=== PATIENT | male | born 1950 | race Caucasian/White ===

== ENCOUNTER 2020-06-21 15:24 | Outpatient (CLI) | payer MEDICARE, SELFPAY ==
--- NOTE | 2020-06-21 15:27 | ECG_ITS ---
Measurements Intervals [place] Rate: 62 P: 51 MT: 172 QRS: 28 QRSD: 97 T: 13 QT: 377 QTc: 383 Interpretive Statements SINUS RHYTHM BASELINE ARTIFACT- II, III, AVF NORMAL ECG Electronically Signed On 06-21-2020 17:21:32 CDT by Indio Ahumada D.O.
== END 2020-06-21 15:25 | disposition home or self-care (01) ==
LOC: CHSLAB 15:27
PROVIDERS: PCP Family Medicine; Visit Provider Family Medicine
DX: Z01.818 Encounter for other preprocedural examination (principal)
CPT/HCPCS: 93005

== ENCOUNTER 2021-03-15 09:35 | Outpatient (CLI) | payer MEDICARE, SELFPAY ==
--- NOTE | 2021-03-15 09:37 | ECG_ITS ---
Measurements Intervals [place] Rate: 61 P: 43 KS: 170 QRS: 31 QRSD: 95 T: 15 QT: 376 QTc: 381 Interpretive Statements SINUS RHYTHM WITH MARKED SINUS ARRHYTHMIA BORDERLINE ECG Electronically Signed On 03-15-2021 12:11:50 CDT by Indio Ahumada D.O.
== END 2021-03-15 09:36 | disposition home or self-care (01) ==
LOC: CHSLAB 09:37 → CHSCARD 09:38
PROVIDERS: PCP Family Medicine; Visit Provider Family Medicine
DX: I10 Essential (primary) hypertension (principal)
CPT/HCPCS: 93005

== ENCOUNTER 2021-06-30 06:55 | Outpatient (CLI) | payer MEDICARE, SELFPAY ==
[2021-06-30 07:10] LABS: Hematocrit 40.8 % (37.0-46.0); Hemoglobin 13.7 g/dL (12.4-15.3); Mean Corpuscular HGB Conc 33.6 g/dL (32.0-36.0); Mean Corpuscular Hemoglobin 32.4 pg (27.0-31.0); Mean Corpuscular Volume 96.5 fL (78.0-102.0); Mean Platelet Volume 8.2 fl (8.7-11.0); Platelet Count Result 226 K/mm3 (150-420); Red Blood Count 4.23 M/mm3 (4.70-6.10); Red Cell Distribution Width 13.2 % (11.6-14.4); White Blood Count 6.7 K/mm3 (4.8-10.8)
[2021-06-30 07:51] LABS: Alanine Aminotransferase 43 U/L (16-63); Albumin Level 3.9 g/dL (3.4-5.0); Alkaline Phosphatase 92 U/L (46-116); Anion Gap 7 mmol/L (8-16); Aspartate Amino Transferase 24 U/L (15-37); Bilirubin,Total 0.5 mg/dL (0.00-1.00); Blood Urea Nitrogen 11 mg/dL (7-18); Calcium 8.6 mg/dL (8.5-10.1); Carbon Dioxide 30 mmol/L (21-32); Chloride 98 mmol/L (98-108); Cholesterol 120 mg/dL (0-200); Estimated Glomerular Filt Rate > 60; Glucose 107 mg/dL (70-99); HDL Direct 51 mg/dL (40-60); LDL Cholesterol Calculated 44 mg/dL (<130); Osmolality Calculated 279 mOsm/kg (285-295); Potassium 4.6 mmol/L (3.5-5.1); Sodium 135 mmol/L (136-145); Total Protein 6.9 g/dL (6.4-8.2); Triglycerides 126 mg/dL (0-150)
== END 2021-06-30 06:56 | disposition home or self-care (01) ==
LOC: CHSLAB 06:57
PROVIDERS: PCP Family Medicine; Visit Provider Nurse Practitioner Family
DX: I10 Essential (primary) hypertension (principal); E78.5 Hyperlipidemia, unspecified
CPT/HCPCS: 36415; 80053; 80061; 85027

== ENCOUNTER 2022-03-23 10:50 | Outpatient (NON) | payer MEDICARE, SELFPAY | END 2022-03-23 10:51 | disposition home or self-care (01) | LOC: CHSLAB 10:52 | PROVIDERS: PCP Family Medicine; Visit Provider Family Medicine | DX: L85.8 Other specified epidermal thickening (principal) | CPT/HCPCS: 88305 ==

== ENCOUNTER 2022-10-23 08:04 | Outpatient (CLI) | payer MEDICARE, SELFPAY ==
[2022-10-23 08:20] LABS: Hematocrit 40.1 % (37.0-46.0); Hemoglobin 13.4 g/dL (12.4-15.3); Mean Corpuscular HGB Conc 33.4 g/dL (32.0-36.0); Mean Corpuscular Hemoglobin 32.2 pg (27.0-31.0); Mean Corpuscular Volume 96.4 fL (78.0-102.0); Mean Platelet Volume 8.3 fl (8.7-11.0); Platelet Count Result 252 K/mm3 (150-420); Red Blood Count 4.16 M/mm3 (4.70-6.10); Red Cell Distribution Width 12.6 % (11.6-14.4); White Blood Count 7.1 K/mm3 (4.8-10.8)
[2022-10-23 08:58] LABS: Alanine Aminotransferase 31 U/L (16-63); Albumin Level 3.7 g/dL (3.4-5.0); Alkaline Phosphatase 81 U/L (46-116); Anion Gap 7 mmol/L (8-16); Aspartate Amino Transferase 17 U/L (15-37); Bilirubin,Total 0.6 mg/dL (0.00-1.00); Blood Urea Nitrogen 12 mg/dL (7-18); Calcium 8.6 mg/dL (8.5-10.1); Carbon Dioxide 29 mmol/L (21-32); Chloride 97 mmol/L (98-108); Cholesterol 117 mg/dL (0-200); Estimated Glomerular Filt Rate > 60; Glucose 110 mg/dL (70-99); HDL Direct 47 mg/dL (40-60); LDL Cholesterol Calculated 49 mg/dL (<130); Osmolality Calculated 276 mOsm/kg (285-295); Potassium 4.4 mmol/L (3.5-5.1); Sodium 133 mmol/L (136-145); Total Protein 6.8 g/dL (6.4-8.2); Triglycerides 105 mg/dL (0-150)
== END 2022-10-23 08:05 | disposition home or self-care (01) ==
LOC: CHSLAB 08:08
PROVIDERS: PCP Family Medicine; Visit Provider Family Medicine
DX: I10 Essential (primary) hypertension (principal); E78.5 Hyperlipidemia, unspecified
CPT/HCPCS: 36415; 80053; 80061; 85027

== ENCOUNTER 2023-06-08 08:27 | Outpatient (CLI) | payer MEDICARE, SELFPAY ==
--- NOTE | ~2023-06-08 | US_ITS ---
EXAMINATION: US aorta [facility] scrn DATE: 06/08/2023 08:43 INDICATION: Abdominal aortic aneurysm screening TECHNIQUE: Grayscale, color Doppler, and pulsed Doppler images of the aorta and common iliac arteries were obtained. COMPARISON: None. FINDINGS: The proximal aorta measures 2.1 cm. The mid aorta measures 2.2 cm. The distal aorta measures 2.1 cm. The right common iliac artery measures 1.4 cm. The left common iliac artery measures 1.3 cm. IMPRESSION: 1. Normal caliber abdominal aorta. Reviewed, dictated and finalized at location A.
== END 2023-06-08 08:28 | disposition home or self-care (01) ==
LOC: CHSIMG 08:29
PROVIDERS: PCP Family Medicine; Visit Provider Nurse Practitioner Family
DX: Z13.6 Encounter for screening for cardiovascular disorders (principal)
CPT/HCPCS: 76706

== ENCOUNTER 2025-07-08 09:01 | Outpatient (CLI) | payer MEDICARE, SELFPAY ==
--- OUTSIDE RECORDS SUMMARY | 2025-03-05 10:30 | XMS_ITS ---
Author Organization [facility] Address [address] [place], [place] [id number] Care Team Providers Care Shoe Shiner Name Role Phone ZECHARIAH HENDRICKS Unavailable [phone] Elver Kapoor Unavailable Unavailable NAZ PATRICIA Unavailable [phone] Allergies Allergen (clinical drug ingredient) Drug/Non Drug Allergy documented on EMR Reaction Allergy Type Onset Date Status Penicillin Unknown Drug Allergy Active REASON FOR VISIT *General care Medications Medication SIG (Take, Route, Frequency, Duration) Notes Start Date End Date Status Aspirin 81 MG 1 tablet Orally Once a day Active Lisinopril 20 MG 1 tablet Orally Once a day Active Multi Vitamin - 1 tablet Orally Once a day Active Atorvastatin Calcium 10 MG 1 tablet Oral ly Once a day Active Encounters Encounter Location Date Provider Diagnosis [address] [id number] 03/05/2025 NAZ PATRICIA Tinea unguium B35.1 ; Acquired keratosis [keratoderma] palmaris et plantaris L85.1 ; Atherosclerosis of [place] arteries of extremities with intermittent claudication, bilateral legs I70.213 ; Pain in right foot M79.671 and Pain in left foot M79.672 Assessments Encounter Date Diagnosis (ICD Code) Assessment Notes Treatment Notes Treatment Clinical Notes Section Notes 03/05/2025 Tinea unguium (ICD-10 - B35.1) Nails 1-5 Bilateral were debrided extensively with nail nippers and emery board, reducing length and girth to pink healthy tissue with any subungual debris and necrotic tissue removed 03/05/2025 Acquired keratosis [keratoderma] palmaris et plantaris (ICD-10 - L85.1) A total of 3 corns or calluses, as described in the note above, were cut and pared utilizing a #15 blade 03/05/2025 Atherosclerosis of [place] arteries of extremities with intermittent claudication, bilateral legs (ICD-10 - I70.213) 03/05/2025 Pain in right foot (ICD-10 - M79.671) 03/05/2025 Pain in left foot (ICD-10 - M79.672) Plan Of Treatment Treatment Notes Assessment Notes Tinea unguium Nails 1-5 Bilateral were debrided extensively with nail nippers and emery board, reducing length and girth to pink healthy tissue with any subungual debris and necrotic tissue removed Acquired keratosis [keratode rma] palmaris et plantaris A total of 3 corns or calluses, as described in the note above, were cut and pared utilizing a #15 blade Next Appt Details Follow Up: 10 - 12 weeks, Re ason: At-Risk Foot care, sooner if problems develop. Provider Name:NAZ GARCES, 08/06/2025 02:50:00 PM, [address] [place] [address], [id number], Progress Notes * EDMOND LUKEDOB:1949 (74 yo M)Acc No.[id number]:03/05/2025 Patient: Cornel BOSSMANADALID PRASHANTROYER Provider: Sofia PATRICIA :1950 A ge:74 Y S ex:Male Date:03/05/2025 Address:[address] [place] [address] Subjective: * Chief Complaints: * 1 . *General care. * HPI: H PI: General care P atient presents to the office for at risk foot care. Patient states that their nails are thickened, elongated and painful. Patient states that it is aggravated by shoe gear. Onset is gradual. Patient denies being diabetic., Patient denies taking blood thinners., Date last seen by Dr. Kapoor was June 2024., Initials LB. * ROS: G eneral / Constitutional: Patient denies c hills, fever, weight loss. ? M usculoskeletal: Patient denies w eakness, broken foot bone. P atient complains of h ammertoes. S kin: Patient complains of f ungal nails, nail changes, calluses and corns. N eurologic: Patient denies b alance difficulty, confusion, difficulty speaking, fainting. * Medical History: C ancer. * Family History: N o Family History documented.. * Social History: H istory of Tobacco. * Medications: T aking Aspirin 81 MG Tablet Chewable 1 tablet Orally Once a day , Taking Multi Vitamin - Tablet 1 tablet Orally Once a day , Taking Lisinopril 20 MG Tablet 1 tablet Orally Once a day , Taking Atorvastatin Calcium 10 MG Tablet 1 tablet Orally Once a day , Medication List reviewed and reconciled with the patient * Allergies: P enicillin: Allergy. Objective: * Vitals: * Examination: P hysical Examination: General appearance: A lert, pleasant, well-nourished and in no acute distress. D ermatologic: Skin findings: S kin is thin, atrophic and lacking pedal hair. Hypertrophic / hyperkeratotic lesion: p lantar aspect of the left and right hallux, plantar aspect of the left 3rd metatarsal head. Nail pathology: N ails 1, 2, 3, 4, and 5 bilateral are elongated, thick, discolored, and dystrophic with subungual debris. They are painful to palpation. ? V ascular: Dorsalis pedis pulse: 1 /4 b ilateral. Posterior tibial pulse: 0 /4 bilateral. Capillary refill: g reater than 3 seconds. Edema: N o edema bilateral. N eurologic: Gross sensation G rossly intact to light touch. There is negative Tinel's sign. M usculoskeletal: Muscle Strength M uscle strength is 5/5 in regards to dorsiflexion, plantarflexion, inversion, and eversion in bilateral lower extremities. Hammertoes D orsally contracted digits 2-5 bilateral. The deformity is rigid and nonreducible. Assessment: * Assessment: 1. T inea unguium - B35.1 (Primary) 2 . 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 A therosclerosis of [place] arteries of extremities with intermittent claudication, bilateral legs - I70.213 4 . P ain in right foot - M79.671 5 . P ain in left foot - M79.672 Plan: * Treatment: 2. A cquired keratosis [keratoderma] palmaris et plantaris Notes: A total of 3 corns or calluses, as described in the note above, were cut and pared utilizing a #15 blade * Immunizations: Immunization record has been reviewed and updated. * Follow Up: 1 0 - 12 weeks (Reason: At-Risk Foot care, sooner if problems develop.) * Billing Information: * Visit Code: 08122 Office Visit, Est Pt., Level 3. * Procedure Codes: * Electronic signature of LUIS PATRICIA DPM on 07/08/2025 at 09:25 AM CDT Sign off status: Pending * Provider: Sofia PATRICIA Date: 0 03/05/2025 Generated for Los melgar/Tamika/Arcadio on: 1 09:25 AM CDT History and Physical Notes * HPI (History of Present Illness) Category Sub-Category Detail Notes Category Not es HPI General care Patient presents to the office for at risk foot care. Patient states that their nails are thickened, elongated and painful. Patient states that it is aggravated by shoe gear. Onset is gradual. Patient denies being diabetic., Patient denies taking blood thinners., Date last seen by Dr. Kapoor was June 2024., Initials LB Examination Category Sub-Category Detail Notes Category Not es Dermatologic Skin findings: Skin is thin, at rophic and lacking pedal hair Nail pathology: Nails 1, 2, 3, 4, an d 5 bilateral are elongated, thick, discolored, and dystrophic with subungual debris. They are painful to palpation Hypertrophic / hyperkeratotic lesion: pl dayday aspect of the left and right hallux, plantar aspect of the left 3rd metatarsal head Neurologic Gross sensation Grossly intact t o light touch. There is negative Tinel's sign Vascular Dorsalis pedis pulse: 1/4 bilateral Edema: No edema bilateral Capillary refill: greater than 3 secon ds Posterior tibial pulse: 0/4 bilateral Physical Examination General appearance: Alert, pleasant, well-nourished and in no acute distress Musculoskeletal Muscle Strength Muscle strength is 5/5 in regards to dorsiflexion, plantarflexion, inversion, and eversion in bilateral lower extremities Hammertoes Dorsally contracted digits 2-5 bilateral. The deformity is rigid and nonreducible
--- OUTSIDE RECORDS SUMMARY | 2025-04-02 09:30 | XMS_ITS ---
Author Organization [facility] Address [address] [place], [place] [id number] Care Team Providers Care Citrus Fruit Packer Name Role Phone ZECHARIAH HENDRICKS Unavailable [phone] Elver Kapoor Unavailable Unavailable NAZ PATRICIA Unavailable [phone] Allergies Allergen (clinical drug ingredient) Drug/Non Drug Allergy documented on EMR Reaction Allergy Type Onset Date Status Penicillin Unknown Drug Allergy Active REASON FOR VISIT FU L FOOT PAIN Medications Medication SIG (Take, Route, Frequency, Duration) Notes Start Date End Date Status Lisinopril 20 MG 1 tablet Orally Once a day Active Atorvastatin Calcium 10 MG 1 tablet Oral ly Once a day Active Aspirin 81 MG 1 tablet Orally Once a day Active Multi Vitamin - 1 tablet Orally Once a day Active Vital Signs Height 68 in 04/02/2025 Weight 240 lbs 04/02/2025 BMI 36.49 kg/m2 04/02/2025 Height-cm 172.72 cm 04/02/2025 Weight-kg 108.86 kg 04/02/2025 Encounters Encounter Location Date Provider Diagnosis [address] [id number] 04/02/2025 NAZ PATRICIA Hallux valgus (acquired), left foot M20.12 ; Atherosclerosis of [place] arteries of extremities with intermittent claudication, bilateral legs I70.213 and Left foot pain M79.672 Assessments Encounter Date Diagnosis (ICD Code) Assessment Notes Treatment Notes Treatment Clinical Notes Section Notes 04/02/2025 Hallux valgus (acquired), left foot (ICD-10 - M20.12) 04/02/2025 Atherosclerosis of [place] arteries of extremities with intermittent claudication, bilateral legs (ICD-10 - I70.213) 04/02/2025 Left foot pain (ICD-10 - M79.672) Plan Of Treatment Next Appt Details Provider Name:NAZ GARCES, 08/06/2025 02:50:00 PM, [address] [place] [address], [id number], Progress Notes * EDMOND LUKEDOB:1949 (74 yo M)Acc No.[id number]:04/02/2025 Patient: Cornel JOHNSON PRASHANTROYER Provider: Sofia PATRICIA :1950 A ge:74 Y S ex:Male Date:04/02/2025 Address:[address] [place] [address] Subjective: * Chief Complaints: * 1 . FU L FOOT PAIN. * HPI: H PI: Follow Up Visit P henrry presents for follow-up visit for poro on the left foot. Patient states that there is still the hard surface to the poro, but the spot does not hurt after the padding was put into his shoes. , MA: elsa. * Medical History: Venita pathak. * Social History: H istory of Tobacco. [...] Allergies: P enicillin: Allergy. Objective: * Vitals: W t: 240 lbs, Wt-k.86 kg, Ht: 68 in, Ht-cm: 172.72 cm, BMI: 36.49 Index, Body Surface Area: 2.28. Assessment: * Assessment: 1. H allux valgus (acquired), left foot - M20.12 (Primary) 2 . A therosclerosis of [place] arteries of extremities with intermittent claudication, bilateral legs - I70.213 3 . L eft foot pain - M79.672 Plan: * Treatment: * Immunizations: Immunization record has been reviewed and updated. * Billing Information: * Visit Code: 42684 Office Visit, Est Pt., Level 3. * Procedure Codes: * Electronic signature of LUIS PATRICIA DPM on 07/08/2025 at 09:25 AM CDT Sign off status: Pending * Provider: Sofia PATRICIA Date: 0 04/02/2025 Generated for [place] melgar/Tamika/Arcadio on: 1 09:25 AM CDT History and Physical Notes * HPI (History of Present Illness) Category Sub-Category Detail Notes Category Not es HPI Follow Up Visit Patient presents for follow-up visit for poro on the left foot. Patient states that there is still the hard surface to the poro, but the spot does not hurt after the padding was put into his shoes. , MA: elsa
--- OUTSIDE RECORDS SUMMARY | 2025-06-04 09:30 | XMS_ITS ---
Author Organization [facility] Address [address] [place], [place] [address] Care Team Providers Care Reliability Manager Name Role Phone ZECHARIAH HENDRICKS Unavailable [phone] Elver Kapoor Unavailable Unavailable NAZ PATRICIA Unavailable [phone] Allergies Allergen (clinical drug ingredient) Drug/Non Drug Allergy documented on EMR Reaction Allergy Type Onset Date Status Penicillin Unknown Drug Allergy Active REASON FOR VISIT *General care Medications Medication SIG (Take, Route, Frequency, Duration) Notes Start Date End Date Status Multi Vitamin - 1 tablet Orally Once a day Active Aspirin 81 MG 1 tablet Orally Once a day Active Lisinopril 20 MG 1 tablet Orally Once a day Active Atorvastatin Calcium 10 MG 1 tablet Oral ly Once a day Active Vital Signs Height 68 in 06/04/2025 Weight 240 lbs 06/04/2025 BMI 36.49 kg/m2 06/04/2025 Height-cm 172.72 cm 06/04/2025 Weight-kg 108.86 kg 06/04/2025 Encounters Encounter Location Date Provider Diagnosis [address] [id number] 06/04/2025 NAZ PATRICIA Atherosclerosis of [place] arteries of extremities with intermittent claudication, bilateral legs I70.213 ; Hallux valgus (acquired), left foot M20.12 and Left foot pain M79.672 Assessments Encounter Date Diagnosis (ICD Code) Assessment Notes Treatment Notes Treatment Clinical Notes Section Notes 06/04/2025 Atherosclerosis of [place] arteries of extremities with intermittent claudication, bilateral legs (ICD-10 - I70.213) 06/04/2025 Hallux valgus (acquired), left foot (ICD-10 - M20.12) 06/04/2025 Left foot pain (ICD-10 - M79.672) Plan Of Treatment Next Appt Details Follow Up: 10 - 12 weeks, Re ason: At-Risk Foot care, sooner if problems develop. Provider Name:NAZ GARCES, 08/06/2025 02:50:00 PM, [address] [place] [address], [id number], Progress Notes * JULIANAPORFIRIO EDMONDDOB:1949 (74 yo M)Acc No.[id number]:06/04/2025 Patient: EDMOND ZHAO Provider: Sofia PATRICIA :1950 A ge:74 Y S ex:Male Date:06/04/2025 Address:[address] [place], [place] [phone] Subjective: * Chief Complaints: * 1 . *General care. * ROS: G eneral / Constitutional: Patient denies c hills, fever, weight loss. ? M usculoskeletal: Patient denies w eakness, broken foot bone. P atient complains of h ammertoes. S kin: Patient complains of f ungal nails, nail changes, calluses and corns. N eurologic: Patient denies b alance difficulty, confusion, difficulty speaking, fainting. * Medical History: Venita pathak. * Surgical History: D enies Past Surgical History. * Hospitalization/Major Diagno stic Procedure: D enies Past Hospitalization. * Family History: N o Family History [...] BMI: 36.49 Index, Body Surface Area: 2.28. * Examination: P hysical Examination: General appearance: [...] rigid and nonreducible. Assessment: * Assessment: 1. H allux valgus (acquired), left foot - M20.12 (Primary) 2 . A therosclerosis of [place] arteries of extremities with intermittent claudication, bilateral legs - I70.213 3 . L eft foot pain - M79.672 Plan: * Treatment: * Follow Up: 1 0 - 12 weeks (Reason: At-Risk Foot care, sooner if problems develop.) * Billing Information: * Visit Code: 83397 Office Visit, Est Pt., Level 3. * Procedure Codes: * Electronic signature of LUIS PATRICIA DPM on 07/08/2025 at 09:25 AM CDT Sign off status: Pending * Provider: Sofia PATRICIA Date: 0 06/04/2025 Generated for [place] melgar/Tamika/Sairaitting on: 1 09:25 AM CDT History and Physical Notes * Examination Category Sub-Category Detail Notes Category Not [...]
[2025-07-08 09:14] LABS: Hematocrit 42.3 % (37.0-46.0); Hemoglobin 14.3 g/dL (12.4-15.3); Immature Granulocyte Percent A 0.2 % (0.0-0.0); Lymphocytes Absolute Auto 1.61 K/mm3 (1.10-4.50); Mean Corpuscular HGB Conc 33.8 g/dL (32-36); Mean Corpuscular Hemoglobin 31.9 pg (27.0-31.0); Mean Corpuscular Volume 94.4 fL (78.0-102.0); Nucleated Red Blood Cells Absolute Auto 0.00 K/mm3 (0.00-0.00); Nucleated Red Blood Cells Perc 0.0 % (0-0.0); Platelet Count Result 251 K/mm3 (150-420); Red Blood Count 4.48 M/mm3 (4.70-6.10); White Blood Count 5.8 K/mm3 (4.8-10.8)
--- OUTSIDE RECORDS SUMMARY | 2025-07-08 09:25 | XMS_ITS | Patient Health Record ---
Author Organization [facility] Address [address] [place], [place] [address] Care Team Providers Care Hob Machine Operator Name Role Phone ZECHARIAH HENDRICKS Unavailable [phone] Elver Kapoor Unavailable Unavailable ROCKY BUSTAMANTE Unavailable [phone] NAZ PATRICIA Unavailable [phone] Allergies Allergen (clinical drug ingredient) Drug/Non Drug Allergy documented on EMR Reaction Allergy Type Onset Date Status Penicillin Unknown Drug Allergy Active Reason For Referral No Information Medications Medication SIG (Take, Route, Frequency, Duration) Notes Start Date End Date Status Multi Vitamin - 1 tablet Orally Once a day Active Aspirin 81 MG 1 tablet Orally Once a day Active Lisinopril 20 MG 1 tablet Orally Once a day Active Atorvastatin Calcium 10 MG 1 tablet Oral ly Once a day Active Vital Signs Height-cm 172.72 cm 06/04/2025 Weight-kg 108.86 kg 06/04/2025 Height 68 in 06/04/2025 Weight 240 lbs 06/04/2025 BMI 36.49 kg/m2 06/04/2025 Encounters Encounter Location Date Provider Diagnosis [address] [id number] 03/05/2025 NAZ PATRICIA Tinea unguium B35.1 ; Acquired keratosis [keratoderma] palmaris et plantaris L85.1 ; Atherosclerosis of [place] arteries of extremities with intermittent claudication, bilateral legs I70.213 ; Pain in right foot M79.671 and Pain in left foot M79.[address] [id number] 04/02/2025 NAZ PATRICIA Hallux valgus (acquired), left foot M20.12 ; Atherosclerosis of [place] arteries of extremities with intermittent claudication, bilateral legs I70.213 and Left foot pain M79.[address] [id number] 06/04/2025 NAZ PATRICIA Atherosclerosis of [place] arteries of extremities with intermittent claudication, bilateral legs I70.213 ; Hallux valgus (acquired), left foot M20.12 and Left foot pain M79.[address] [id number] 08/21/2024 ROCKY BUSTAMANTE Unspecified atherosclerosis of [place] arteries of extremities, bilateral legs I70.203 ; Tinea unguium B35.1 ; Other hammer toe(s) (acquired), right foot M20.41 ; Other hammer toe(s) (acquired), left foot M20.42 ; Pain in right toe(s) M79.674 ; Pain in left toe(s) M79.675 and Acquired keratosis [keratoderma] palmaris et plantaris L85.1 [facility] [address] [place], [place] [id number] 10/23/2024 ZECHARIAH SNOOK Tinea unguium B35.1 ; Acquired keratosis [keratoderma] palmaris et plantaris L85.1 ; Atherosclerosis of [place] arteries of extremities with intermittent claudication, bilateral legs I70.213 ; Pain in right foot M79.671 and Pain in left foot M79.[address] [id number] 12/25/2024 ZECHARIAH SNOOK Tinea unguium B35.1 ; Acquired keratosis [keratoderma] palmaris et plantaris L85.1 ; Atherosclerosis of [place] arteries of extremities with intermittent claudication, bilateral legs I70.213 ; Pain in right foot M79.671 and Pain in left foot M79.672 Assessments Encounter Date Diagnosis (ICD Code) Assessment Notes Treatment Notes Treatment Clinical Notes Section Notes 08/21/2024 Tinea unguium (ICD-10 - B35.1) Aseptic debridement of elongated thickened nails x 10 using sterile nippers, nails were debrided in length and thickness by 30% utilizing a nail nipper without incident. The patient was educated regarding all treatment options that include topical and oral antifungal treatments. I discussed the options of taking a sample of the nail to confirm diagnosis. Nail clippings were not sent for pathology analysis. The patient was educated why and how the fungal infection evolved in their feet and the patient was given information regarding how to prevent further infection. The patient was told to keep feet dry and change socks. The patient was told to be careful with old shoes and excessive sweating. The patient was educated regarding both OTC and prescription treatments. 08/21/2024 Unspecified atherosclerosis of [place] arteries of extremities, bilateral legs (ICD-10 - I70.203) Patient educated on risks and aggravating factors of PVD, including conservative treatment options such as a diet and exercise regimen to aid in slowing progression of vascular disease 10/23/2024 Tinea unguium (ICD-10 - B35.1) Nails 1-5 Bilateral were debrided extensively with nail nippers and emery board, reducing length and girth to pink healthy tissue with any subungual debris and necrotic tissue removed 10/23/2024 Acquired keratosis [keratoderma] palmaris et plantaris (ICD-10 - L85.1) A total of 3 corns or calluses, as described in the note above, were cut and pared utilizing a #15 blade 12/25/2024 Tinea unguium (ICD-10 - B35.1) Nails 1-5 Bilateral were debrided extensively with nail nippers and emery board, reducing length and girth to pink healthy tissue with any subungual debris and necrotic tissue removed 12/25/2024 Acquired keratosis [keratoderma] palmaris et plantaris (ICD-10 - L85.1) A total of 3 corns or calluses, as described in the note above, were cut and pared utilizing a #15 blade 03/05/2025 Tinea unguium (ICD-10 - B35.1) Nails [...] cut and pared utilizing a #15 blade 04/02/2025 Atherosclerosis of [place] arteries of extremities with intermittent claudication, bilateral legs (ICD-10 - I70.213) 04/02/2025 Hallux valgus (acquired), left foot (ICD-10 - M20.12) 06/04/2025 Atherosclerosis of [place] arteries of extremities with intermittent claudication, bilateral legs (ICD-10 - I70.213) 06/04/2025 Hallux valgus (acquired), left foot (ICD-10 - M20.12) 06/04/2025 Left foot pain (ICD-10 - M79.672) 04/02/2025 Left foot pain (ICD-10 - M79.672) 03/05/2025 Atherosclerosis of [place] arteries of extremities with intermittent claudication, bilateral legs (ICD-10 - I70.213) 12/25/2024 Atherosclerosis of [place] arteries of extremities with intermittent claudication, bilateral legs (ICD-10 - I70.213) 10/23/2024 Atherosclerosis of [place] arteries of extremities with intermittent claudication, bilateral legs (ICD-10 - I70.213) 08/21/2024 Other hammer toe(s) (acquired), right foot (ICD-10 - M20.41) The patient was educated regarding how to mechanically stabilize their deformity. The patient was given education about shoe recommendations specific for the condition. The patient was educated about custom orthotics and how appropriate shoes and orthotics can prevent further worsening of the deformity. The patient was educated about how bad shoe habits can worsen the condition. NSAIDS, P.T., injections and other conservative treatments were discussed. Both surgical and non surgical treatments were discussed, but conservative options were emphasized. 08/21/2024 Other hammer toe(s) (acquired), left foot (ICD-10 - M20.42) 10/23/2024 Pain in right foot (ICD-10 - M79.671) 12/25/2024 Pain in right foot (ICD-10 - M79.671) 03/05/2025 Pain in right foot (ICD-10 - M79.671) 03/05/2025 Pain in left foot (ICD-10 - M79.672) 12/25/2024 Pain in left foot (ICD-10 - M79.672) 10/23/2024 Pain in left foot (ICD-10 - M79.672) 08/21/2024 Pain in right toe(s) (ICD-10 - M79.674) 08/21/2024 Pain in left toe(s) (ICD-10 - M79.675) 08/21/2024 Acquired keratosis [keratoderma] palmaris et plantaris (ICD-10 - L85.1) Pre-ulcerative keratoderma debrided sharply down to the level of healthy tissue using a 15 blade. After removal of overlying extensive hyperkeratosis, healthy tissue was noted and care was taken to assure that no undermining or probing was present. It should be noted that no probing was noted and no infection or drainage was noted. Plan Of Treatment Next Appt Details Provider Name:NAZ GARCES, 08/06/2025 02:50:00 PM, [address] [place] [address], [id number], Insurance Providers Payer Name Payer Address Payer Phone Subscriber Number Group Number Insured Name Patient Relationship to Insured Coverage Start Date Coverage End Date [facility] [address] [address] [place], [place] [phone] [id number] EDMOND MURCIA Self - patient is the insured Medical (General) History Medical History History ICD Code Cancer
[2025-07-08 09:45] LABS: Alanine Aminotransferase 33 U/L (6-50); Albumin Level 4.7 g/dL (3.5-5.1); Alkaline Phosphatase 67 U/L (38-126); Anion Gap 9 mmol/L (4-12); Aspartate Amino Transferase 31 U/L (17-59); Bilirubin,Total 0.7 mg/dL (0.2-1.3); Blood Urea Nitrogen 14 mg/dL (9-20); Calcium 9.8 mg/dL (8.4-10.2); Carbon Dioxide 28 mmol/L (22-30); Chloride 97 mmol/L (98-107); Cholesterol 120 mg/dL (0-200); Estimated Glomerular Filt Rate > 60; Glucose 117 mg/dL (65-110); HDL Direct 56 mg/dL; Osmolality Calculated 279 mOsm/kg (285-295); Potassium 5.4 mmol/L (3.4-5.0); Sodium 134 mmol/L (137-145); Total Protein 8.0 g/dL (6.3-8.2); Triglycerides 73 mg/dL (<150)
[2025-07-08 10:16] LABS: Thyroid Stimulating Hormone Reflex 1.280 uIU/mL (0.465-4.68)
== END 2025-07-08 09:02 | disposition home or self-care (01) ==
LOC: CHSLAB 09:03
PROVIDERS: PCP Family Medicine; Visit Provider Family Medicine
DX: I10 Essential (primary) hypertension (principal); E03.9 Hypothyroidism, unspecified
CPT/HCPCS: 36415; 80053; 80061; 84443; 85025